=== PATIENT | male | born 1940 | race Caucasian/White ===

== ENCOUNTER → 2019-04-29 | Outpatient (CLI) | payer MEDICARE ==
[~2019-04-29] MED LIST: ALPRAZOLAM1 M1; AMBIEN 10 MG TA10 MG; ASPIRIN325; ATACAND8 MG; BENAZEPRIL HCL40 MG; CARVEDILOL25 MG PO; FISHOIL; FUROSEMIDE 40 M40 M1; HUMULIN 70100 UNIT/2 SQ; HUMULIN N100 UNIT/1 SQ; HUMULINR100; KLOR-CON 1010 MEQ; PRAVACHOL40 MG PO; SENNA S TABLET1 EACH; VITCB500GO PO
[2019-04-29 10:20] LABS: CREATININE 1.3 mg/dL (0.6-1.3)
== END ==
LOC: M.LAB 10:00 → M.CT 11:30
DX: M47.23 Other spondylosis with radiculopathy, cervicothoracic region (principal); M48.03 Spinal stenosis, cervicothoracic region

== ENCOUNTER → 2019-05-13 | Outpatient (CLI) | payer MEDICARE ==
[~2019-05-13] MED LIST changes: +ASPIR 8181 MG PO; -ASPIRIN325; +COZAAR 25 MG TA25 M1 PO; -FUROSEMIDE 40 M40 M1; +FUROSEMIDE 40 M40 M1 PO; +IBUPROFEN 800800 M1 PO; +LANTUS SUBQ; +LIPITOR40 MG PO; +TIZANIDINE HCL 22 M1 PO; +TYLENOL EXTRA500 MG PO
== END ==
LOC: M.PC 09:38
DX: M47.22 Other spondylosis with radiculopathy, cervical region (principal); Z79.891 Long term (current) use of opiate analgesic; Z79.899 Other long term (current) drug therapy

== ENCOUNTER → 2019-10-18 | Outpatient (CLI) | payer MEDICARE | LOC: M.CT 10-17 13:00 | DX: I70.0 Atherosclerosis of aorta (principal); R19.4 Change in bowel habit; N32.89 Other specified disorders of bladder; Z85.038 Personal history of other malignant neoplasm of large intestine; M47.9 Spondylosis, unspecified ==